=== PATIENT | female | born 1935 | race Caucasian/White ===

== ENCOUNTER 2016-12-24 12:20 | Emergency (ER) | payer MEDICARE, BC, MEDICAID ==
[2016-12-24] MEDS ORDERED: Furosemide 40 MG/4 ML VIAL IVPUSH ONE (13:00)
[2016-12-24 15:21] VITALS: BP 108/81
--- NOTE | 2016-12-26 11:46 | CR ---
INDICATION: Short of breath. CHEST: An AP portable upright view of the chest 12/24/2016 was compared with , and revealed an appearance compatible with CHF with interstitial lung edema, possibly some alveolar lung edema. The possibility of superimposed pneumonia, especially such as an aspiration pneumonia cannot be excluded. Small pleural effusions may be present bilaterally, as the costophrenic angles were not well seen. The heart did appear enlarged. The aorta is tortuous and calcified. Overlying EKG leads are noted. IMPRESSION: Findings are felt to be compatible with CHF and interstitial lung edema, possibly with mild pulmonary edema, although superimposed aspiration pneumonia could also be present. MTDD
--- NOTE | 2016-12-26 15:43 | ER ---
DATE SEEN: 12/24/2016 TIME SEEN: The patient was seen at 1230 hours. CHIEF COMPLAINT: Shortness of breath. HISTORY OF PRESENT ILLNESS: This 81-year-old , woman comes in with history of shortness of breath, onset yesterday. She lives in [facility] (assisted living) and was brought in by family because she was noted to have increasing wheeze, shortness of breath. She denies fever, has a rare cough. Denies difficulty walking, but had mild nausea over the past 2 weeks. She is status post cholecystectomy on 11/05/2016, was noted to have significant kidney issues with stage 4 kidney disease. The patient has been started on insulin recently. Yesterday, she was noted to have "slight panic attack" with hyperventilation. Family was wondering if she was having heart failure or heart attack. PAST MEDICAL HISTORY: Right carotid endarterectomy with associated antecedent little strokes. This compromised her right eye vision. She has had chronic neck pain. She has seen a chiropractor, last time seen on 12/21/2016. Her fluid intake has been decreased and noted to have treated hypothyroidism. History of falls, anemia, depression, and hypertension. REVIEW OF SYSTEMS: HEENT: Denies headache, sinusitis, recent sore throat, or nasal discharge. CARDIORESPIRATORY: As noted above. Increasing shortness of breath without chest pain, lightheadedness, or palpitation. The patient has mass in her lung, which was biopsied at [facility]. The diagnosis is insufficient to clearly document adenocarcinoma of the lung, but there is some suggestion that it probably is adenocarcinoma. Consequently, the [facility] staff would want a repeat biopsy, and this is planned for the near future. GI: Denies diarrhea, constipation, blood in the stool, black tarry stool. Status post cholecystectomy. : Mild incontinence. Has stage 3/stage 4 kidney disease documented on 11/04/2016, with previous hospitalization. MUSCULOSKELETAL: Decreased strength. No history of recent falls, but has had a history in the past of falling. NEURO: Previous CVA as noted above, before she had right carotid bypass. She uses a walker to get about. HEM: The patient has anemia secondary to her renal disease and is taking erythropoietin shots. MEDICATIONS: 1. Hydralazine 25 mg b.i.d. 2. Hydrochlorothiazide 12.5 mg daily. 3. 13 units of Lantus daily and 19 units daily, so it must be a variable dose during the daytime, twice a day. 4. Metformin 850 mg b.i.d. 5. Lexapro 20 mg daily. 6. Carvedilol 12.5 mg b.i.d. 7. Multivitamins. 8. Levothyroxine 150 mcg daily. 9. Venlafaxine 150 mg daily. 10.Simvastatin 20 mg daily. 11.Glipizide 10 mg b.i.d. 12.Amlodipine 5 mg daily. PHYSICAL EXAMINATION: VITAL SIGNS: Blood pressure 103/88, heart rate 69, respirations 21, oxygen saturation 96% on 2 L nasal cannula. The patient is mildly short of breath. HEENT: The patient denies headache. She has decreased hearing. Very pleasant. She looks very pale. She has trace pinkness of the conjunctivae. PERRLA intact. Previous cataract surgery noted in her eyes. Retinal vascular changes, arterial narrowing noted. TMs, hearing decreased. Pharynx, mildly dry. She has dry lips. LUNGS: Rales in lungs, posterior, bilaterally. ABDOMEN: Soft. No guarding, abdominal discomfort, or bruits. EXTREMITIES: Lower extremities without edema. Deep tendon reflexes hypoactive in upper and lower extremities. LABORATORY DATA: White count 14,400, PMNs 92, bands 1, lymphocytes 3, monos 4, hemoglobin 8.4, RDW 16.9, platelets 271,000. Hyponatremia with 133 sodium; potassium 4.6; chloride 102; CO2 19; BUN 57; creatinine 2; BUN and creatinine ratio of 28.5. GFR 24. Glucose 190, AST 129, ALT 34, troponin 50. Brain natriuretic peptide 5000. Albumin 2.6. EKG sinus rhythm, heart rate 69, low voltage, poor R-wave progression across the anterior precordial suggestive of old anteroseptal myocardial infarction. Nonspecific intraventricular conduction delay. QRS 0.11, decreased voltage diffusely. X-ray, diffuse interstitial infiltrate in inferior lobes with cephalization noted and loss of cardiac border on the right. ASSESSMENT: 1. Congestive heart failure with increased cardiomegaly, coronary artery disease, atherosclerosis. Doubtful for myocardial infarction; the EKG has no ST elevation, but troponin is elevated at 50, probably secondary to her adenocarcinoma of the lung. 2. Lung infiltrate, possibly secondary to her interstitial lung disease and adenocarcinoma. 3. Congestive heart failure magnified by her renal insufficiency. Creatinine 2.0, unchanged from before. BUN and creatinine ratio elevated because of her dehydration. She has very dry lips but still has suggestion of congestive heart failure of the lungs, the latter is probably more of reflection of the adenocarcinoma of lungs. 4. Decreased hemoglobin secondary to acute renal disease, stage 4 renal disease, and decreased erythropoietin. 5. Elevated TSH secondary to hypothyroidism, undertreated, presently needs to have it increased. 6. Low voltage EKG probably secondary to hypothyroidism. 7. BNP elevation at 5000, which mirrors the congestive heart failure. This also may be the adenocarcinoma of the lung. 8. Neutrophilic leukocytosis, rule out infectious process. 9. History of coagulopathy and/or pulmonary embolism with a D-dimer of 2200. However, the latter may be elevated in the face of her adenocarcinoma of the lung. ER COURSE: 1. The patient's status improved with Lasix diuresis, 20 mg administered IV. 2. The patient's status discussed with Dr. Gonzalez, hospitalist at [facility]; the patient will be transferred to [facility]. Additional comment: Elevated troponin probably secondary to the patient's adenocarcinoma of the lung. EKG did not suggest a new myocardial infarction. No ST elevation. Possible non-STEMI still, but remote, and I think more likely the elevated 50 troponin is not a function of myocardial infarction, but a function of her adenocarcinoma of the lung. Additionally, right carotid bypass, stent placed; and status post cholecystectomy 11/05/2016. /[id number] CHARLIE/CLARICE
== END 2016-12-24 15:45 ==
LOC: EEVIPCON 12:23 → FB.ED 12:23
DX: I51.7 Cardiomegaly (principal); I13.0 Hypertensive heart and chronic kidney disease with heart failure and stage 1 through stage 4 chronic kidney disease, or unspecified chronic kidney disease; N18.4 Chronic kidney disease, stage 4 (severe); I50.9 Heart failure, unspecified; I25.10 Atherosclerotic heart disease of native coronary artery without angina pectoris; R91.8 Other nonspecific abnormal finding of lung field; D72.829 Elevated white blood cell count, unspecified; D64.9 Anemia, unspecified; E03.9 Hypothyroidism, unspecified; F32.9 Major depressive disorder, single episode, unspecified; Z79.899 Other long term (current) drug therapy
CPT/HCPCS: 36415; 71010; 80053; 82962; 83880; 84484; 85025; 85379; 93005; 96374; 99284; 99285; J1940